=== PATIENT | male | born 1985 | race Caucasian/White ===

== ENCOUNTER 2021-01-25 22:10 | Emergency (ER) | payer OTHER, SELFPAY ==
[~2021-01-25] VITALS: Ht 182.9 cm; Wt 78.0 kg
[2021-01-25 22:20] VITALS: BP_SYST 120
--- NOTE | 2021-01-25 22:20 | NUR ---
Patient to ER bed 7 to gown for evaluation. Side rails up.
--- NOTE | 2021-01-25 22:20 | NUR ---
Ren smith in [facility] - 01/25/21 at 2321 by [email or web address] Patient to [facility] [address] to [facility] for evaluation. Side rails up.
--- NOTE | 2021-01-25 22:30 | NUR ---
PATIENT AAOX4 AND AMBULATORY C/O PALPITATIONS THAT STARTED. PATIENT STATED HE WAS RESTING WATCHING TV AND STARTED HAVING PALIPATIONS. STATED IN THE PAST HE WOULD HAVE CHEST PAIN. NO OTHER MEDICAL HISTORY. VSS. DENIES ANY N/V/D OR SOB. CURRENTLY HAVING 0/10 ON THE PAIN SCALE.
--- NOTE | 2021-01-25 22:50 | NUR ---
PORTABLE XRAY DONE AT [facility].E
--- NOTE | 2021-01-25 22:55 | NUR ---
DR. TATUM AT BEDSIDE FOR EVALUATION.
[2021-01-25 23:07] LABS: BARBITURATE, URINE NEGATIVE (NEG <=200); BENZODIAZEPINE, URINE NEGATIVE (NEG <=150); CANNABINOID, URINE NEGATIVE (NEG <=50); COCAINE, URINE NEGATIVE (NEG <=150); METHAMPHETAMINES SCREEN,URINE NEGATIVE (NEG <=500); OPIATE, URINE NEGATIVE (NEG <=100); PHENCYCLIDINE SCREEN,URINE NEGATIVE (NEG <=25); UR TRICYCLIC ANTIDEPRESSANTS NEGATIVE (NEG <=300); URINE AMPHETAMINE NEGATIVE (NEG <=500); URINE METHADONE NEGATIVE (NEG <=200); URINE OXYCODONE SCREEN NEGATIVE (NEG <=100); URINE PROPOXYPHENE SCREEN NEGATIVE (NEG <=300)
[2021-01-25 23:14] LABS: BASOPHILS % (AUTO) 0.4 % (0.0-2.0); HEMATOCRIT 44.8 % (36-54); HEMOGLOBIN 14.9 g/dL (14.0-18.0); LYMPHOCYTES # (AUTO) 1.2 K/uL (1.0-5.5); MEAN CORPUSCULAR HEMOGLOBIN 30 pg (27-31); MEAN CORPUSCULAR HGB CONC 33 % (32-36); MEAN CORPUSCULAR VOLUME 91 fL (79.0-98.0); MONOCYTES # (AUTO) 0.3 K/uL (0.0-1.0); MONOCYTES % (AUTO) 5.9 % (1.7-9.3); NEUTROPHILS # (AUTO) 2.8 K/uL (1.8-7.7); NEUTROPHILS % (AUTO) 64.7 % (40.0-70.0); PLATELET COUNT (AUTO) 105 K/uL (130-430); RED BLOOD CELL COUNT(AUTO) 4.92 MIL/uL (4.2-6.2); RED CELL DISTRIBUTION WIDTH 12.9 % (9.0-15.0); WHITE BLOOD COUNT (AUTO) 4.3 K/uL (4.8-10.8)
[2021-01-25 23:28] LABS: CALCIUM 8.1 mg/dL (8.4-11.0); CREATININE 1.11 mg/dL (0.55-1.30); POTASSIUM 3.8 mmol/L (3.5-5.1)
[2021-01-25 23:39] LABS: ALBUMIN 3.6 g/dL (3.4-4.8); TOTAL BILIRUBIN 0.4 mg/dL (0.0-1.0)
[2021-01-26 00:47] LABS: INFLUENZA A&B ANTIGEN SCREEN NEGATIVE FOR A & B (NEGATIVE)
--- NOTE | 2021-01-26 01:00 | NUR ---
Patient resting quietly. No acute distress noted. Vital signs within normal range.
[2021-01-26 02:28] VITALS: BP_SYST 120
--- NOTE | 2021-01-26 02:31 | NUR ---
Patient given written and verbal discharge instructions and verbalizes understanding. DR. RC PATRICK MD discussed with patient the results and treatment provided. Patient in stable condition. ID arm band removed. Patient educated on pain management and to follow up with PMD. Pain Scale 0/10. Opportunity for questions provided and answered. Medication side effect fact sheet provided.
== END 2021-01-26 02:31 | disposition home or self-care (01) ==
LOC: SED 22:10
DX: U07.1 COVID-19 (principal); Z79.899 Other long term (current) drug therapy
CPT/HCPCS: 36415; 71045; 80053; 80307; 83880; 84484; 85025; 86710; 93005; 99285